=== PATIENT | male | born 2000 | race African-American/Black ===

== ENCOUNTER 2023-02-19 21:07 | Emergency (ER) | payer OTHER, SELFPAY ==
--- NOTE | ~2023-02-19 | XR_ITS ---
EXAMINATION: XR finger 2nd LT min 2V INDICATION: Left second finger pain TECHNIQUE: Four views of the left second finger are obtained. COMPARISON: None available FINDINGS: There is dorsal and medial subluxation of the second middle phalanx with respect to the pro ximal phalanx. No fracture is identified. There is soft tissue swelling of the second finger. IMPRESSION: 1. Dorsal and medial subluxation of the second middle phalanx with respect to the proximal phalanx. Reviewed, dictated and finalized at location F. IMPRESSION: 1. Dorsal and medial subluxation of the second middle phalanx with respect to t he proximal phalanx.
[2023-02-19 21:09] VITALS: BP 137/77; PULSE 86; RESP 18; TEMP 36.4; O2SAT 99
--- NOTE | 2023-02-19 21:46 | ED.GENADULT ---
HPI - General Adult General Chief complaint: Extremity Injury, Upper Stated complaint: Left index finger injury Time Seen by Provider: 02/19/23 21:11 Source: patient Mode of arrival: ambulatory Limitations: no limitations History of Present Illness HPI narrative: This is a 22-year-old male who presents to the ED with chief complaint of a left index finger injury that occurred just prior to arrival. Patient reports he was throwing something at the wall but his hand accidentally hit the wall causing the injury. Reports pain in the finger is controlled at this time. Denies any further site of pain or injury. Denies any numbness or weakness Related Data Allergies Allergy/AdvReac Type Severity Reaction Status Date / Time No Known Allergies Allergy Verified 02/19/23 21:13 Review of Systems Review of Systems: All systems as dictated in HPI Exam Narrative: GENERAL: Well-appearing, well-nourished, and in no acute distress. HEAD: Normocephalic, atraumatic. EYES: PERRLA and EOMI. ENT: Nares clear, no rhinorrhea or epistaxis. Mucous membranes moist. Oropharynx without tonsillar hypertrophy exudate or other lesions. NECK: Supple. No adenopathy or masses. CHEST: No respiratory distress. Clear to auscultation. No wheezes rales or rhonchi HEART: Regular rate and rhythm. No murmur heard. Normal peripheral pulses. ABDOMEN: Soft, nontender, nondistended, normal active bowel sounds. MSK: Left index finger deformity distally. Neurovascularly intact distally. SKIN: Warm, dry, no rash. NEURO: Alert and oriented x3. No focal deficits. PSYCH: Normal mood and affect. Course Vital Signs Vital signs: Vital Signs Temperature 97.6 F 02/19/23 21:09 Pulse Rate 86 02/19/23 21:09 Respiratory Rate 18 02/19/23 21:09 Blood Pressure 137/77 02/19/23 21:09 Pulse Oximetry 99 02/19/23 21:09 Temperature 97.6 F 02/19/23 21:09 Pulse Rate 86 02/19/23 21:09 Respiratory Rate 18 02/19/23 21:09 Blood Pressure 137/77 02/19/23 21:09 Pulse Oximetry 99 02/19/23 21:09 Medical Decision Making [facility] Narrative Medical decision making narrative: This is a 22-year-old male who presents to the ED with a left finger dislocation. Vitals are normal. Exam shows distal index finger on the left hand is displaced dorsally and with ulnar deviation. Hand x-ray confirms these findings and rules out any fracture. Attempted multiple times with gentle traction to reduce the dislocation without relief. Offered the patient a digital block and he refused. Offered the patient a course of Valium to help with anxiety and with the muscle tension and he again refused. The neck step was to try a fingertrap mechanism with an arm weight for gentle traction. He refused this as well. He states that he wants to go home and is refusing any further intervention. He is electing to sign out AMA with finger deformity. This patient has elected to leave against medical advice. In my opinion, the patient has capacity to leave AMA. The patient is clinically sober, free from distracting injury, appears to have intact insight and judgment and reason, and in my opinion has capacity to make decisions. I had a discussion with the patient about their workup and results, and that they may have permanent deformity or dysfunction of the finger without reduction here. Patient is fully understanding of the risks of proceeding without any further intervention.. I also offered alternatives to departing AMA such as assigning the patient a different provider or an alternate treatment pathway. The patient is refusing any further care and is leaving against medical advice. I am unable to convince the patient to stay. I have asked them to return as soon as possible to complete their evaluation, and also explained that they were welcome to return to the ER for further evaluation whenever they choose. I have asked the patient to follow up with their primary doctor as so
--- NOTE | 2023-02-19 22:09 | PC.NURSE ---
Pt refuses to attempt finger trap & states you already tried, it's stuck . Pt educated on importance of treatment and still refusing treatment. Pt states just give me a pain pill, I have a train to catch early in the morning and I will get it fixed when I get back home to [place] . Pt educated on the risks of refusing treatment. Pt still refusing.
[2023-02-19] MEDS: HYDROcodone/acetaminophen (*CRX) 5-325 MG TABLET 1 TAB PO (22:26)
[2023-02-19 22:30] VITALS: BP 137/77; PULSE 88; RESP 20; O2SAT 98
== END 2023-02-19 22:34 | disposition left against medical advice (07) ==
PROVIDERS: Emergency Provider Physician Assistant
DX: S63.251A Unspecified dislocation of left index finger, initial encounter (principal); W22.01XA Walked into wall, initial encounter
CPT/HCPCS: 73140; 99283; A9270